=== PATIENT | female | born 1955 | race Caucasian/White ===

== ENCOUNTER 2018-04-03 01:54 | Emergency (ER) | payer BC ==
[2018-04-03 01:57] VITALS: TEMP 36.7; Ht 157.5 cm
[2018-04-03] MEDS ORDERED: ONDANSETRON INJ 2 MG/ML 2 ML VIAL IV STA ×2 (02:09→04:39)
[2018-04-03] MEDS ORDERED: SODIUM CHLORIDE 0.9% 1000ML 1,000 ML IV STA (02:09)
[2018-04-03 02:18] LABS: BASO % 0.1 %; BASO ABS # 0.01 K/uL (0-0.2); EOS ABS # 0.39 K/uL (0-0.5); HEMATOCRIT 43.5 % (37-47); HEMOGLOBIN 14.6 g/dL (12.0-16.0); IG# 0.02 K/uL (0.00-0.02); LYMPH % 3.6 %; LYMPH ABS # 0.28 K/uL (1.2-3.4); MEAN CELL VOLUME 85.3 fL (80-100); MEAN CORPUSCULAR HEMOGLOBIN 28.6 pg (25-34); MEAN CORPUSCULAR HGB CONC 33.6 g/dl (32-36); MEAN PLATELET VOLUME 10.1 fL (7.4-10.4); MONO % 6.6 %; MONO ABS # 0.52 K/uL (0.11-0.59); NEUT % 84.4 %; PLATELET COUNT 246 K/uL (130-400); RED CELL DISTRIBUTION WIDTH CV 13.4 % (11.5-14.5); RED CELL DISTRIBUTION WIDTH SD 41.6 fL (36.4-46.3); WHITE BLOOD COUNT 7.82 K/uL (4.8-10.8)
[2018-04-03] MEDS ORDERED: CHOL1000 PO (02:25)
[2018-04-03] MEDS ORDERED: ASPI81TA28 PO (02:25)
[2018-04-03] MEDS ORDERED: BENA20TA14 PO (02:25)
[2018-04-03] MEDS ORDERED: SERT1TAB71 PO (02:25)
[2018-04-03] MEDS ORDERED: LEVO125T72 PO (02:25)
[2018-04-03 02:47] LABS: ALBUMIN 3.4 gm/dl (3.4-5.0); ALKALINE PHOSPHATASE 175 U/L (45-117); ALT/SGPT 150 U/L (12-78); AST/SGOT 142 U/L (15-37); BLOOD UREA NITROGEN 12 mg/dl (7-18); CALCIUM 8.7 mg/dl (8.5-10.1); CARBON DIOXIDE 22 mmol/L (21-32); CREATININE 0.99 mg/dl (0.60-1.20); GLUCOSE 145 mg/dl (70-99); LIPASE 173 U/L (73-393); POTASSIUM 3.6 mmol/L (3.5-5.1); SODIUM 131 mmol/L (136-145); TOTAL PROTEIN 7.8 gm/dl (6.4-8.2)
[2018-04-03] MEDS ORDERED: ACETAMINOPHEN 500 MG TAB ONE (04:04)
--- NOTE | 2018-04-03 04:14 | EMERGENCY ROOM VISIT NOTE ---
History Report prepared by Fawn: Eva Abbott Under the Supervision of: Dr. Krystyna Rea D.O. First contact with patient: 02:02 Chief Complaint: VOMITING Stated Complaint: NAUSEA VOMITING WEAKNESS History of Present Illness The patient is a 62 year old female who presents to the Emergency Room with complaints of persistent vomiting starting yesterday. The patient states that she started having a cold on the 18 of March. She states that it seemed to get worse after going to [place] for a wedding. She reports that she had a dry cough when she returned that continued to worsen. She states that she would cough so much she would have bladder incontinence. She states that she called her PCP who prescribed her Tessalon Perles. She notes that they did not help with her cough. The patient states that she called her PCP again and they asked that she make an appointment, but she could not get in until Friday. She reports that her nausea and vomiting started 2 days ago with loss of appetite. She states that she started feeling a little better today, but after trying to eat Phillips 's vomited again. The patient notes that she had mild burning with urination and thought maybe she had a UTI. She states that she started taking a Macrolide and has had 4 doses. She states that she thinks that this may be part of the reason she is vomiting because she didn't vomit when she stopped taking it for one day. She notes that she doesn't believe she has a UTI because she has no other symptoms. The patient complains of dry mouth. The patient denies diarrhea. Source of History: patient Onset: yesterday Position: abdomen Quality: other (vomiting) Timing: other (persistent) Modifying Factors (Worsening): eating, other (Macrolide antibiotic) Associated Symptoms: + cough, + nausea, + urinary symptoms, No diarrhea Note: The patient complains of bladder incontinence and dry mouth. Review of Systems See HPI for pertinent positives & negatives. A total of 10 systems reviewed and were otherwise negative. Past Medical & Surgical Medical Problems: (1) HTN (hypertension) (2) Hyperthyroidism Family History FH: CAD (coronary artery disease) FH: CHF (congestive heart failure) FH: myocardial infarction Social History Smoking Status: Never Smoker Marital Status: Housing Status: lives with significant other Occupation Status: retired Current/Historical Medications Scheduled Aspirin (Aspirin Ec), 81 MG PO QAM Benazepril (Lotensin), 20 MG PO QAM Cholecalciferol (Vitamin D3), 1 TAB PO QAM Hydrocodone W/ Homatropine (Hycodan 5/1.5MG 5 Ml), 5 ML PO Q4H Levothyroxine Sodium (Synthroid), 125 MCG PO QAM Sertraline Hcl (Zoloft), 50 MG PO QAM Scheduled PRN Ondansetron Hcl (Zofran), 4 MG PO Q6 PRN for Nausea Allergies Coded Allergies: No Known Allergies (Unverified , 04/03/18) Physical Exam Vital Signs Date Time Temp Pulse Resp B/P (MAP) Pulse Ox O2 Delivery O2 Flow Rate FiO2 04/03/18 06:02 88 18 97/57 97 04/03/18 04:48 85 18 99/47 96 Room Air 04/03/18 04:07 89 25 111/74 94 Room Air 04/03/18 02:54 93 16 91 Room Air 04/03/18 02:35 93 04/03/18 02:31 105/67 04/03/18 02:24 91 21 95 Room Air 04/03/18 02:18 110/74 04/03/18 01:57 36.7 113 18 111/77 96 Room Air Physical Exam General: Appears uncomfortable. Slightly hyperventilating. HEENT: Head - normocephalic and atraumatic Pupils are equal, round, and reactive to light. Extraocular eye muscles are intact, and sclera are anicteric. Nose - moist nasal mucosa without discharge. Mouth - moist buccal mucosa. Oropharynx is nonerythematous and there is no tonsillar exudate or edema noted. Neck: Supple; no JVD, nuchal rigidity, cervical lymphadenopathy. Heart: Regular rate and rhythm. There is a normal S1 and S2 with no murmurs, clicks, or gallops appreciated. Lungs: Clear to auscultation bilaterally with no wheezes, rales, or rhonchi. Abdomen: Soft, completely nontender, nondistended, with good bowel sounds. There are no palpable pulsatile masses or hepatosplenomegaly. There is no guarding, rigidity, or rebound noted. Extremities: No evidence of cyanosis, clubbing, or edema. There are easily palpable peripheral pulses. Skin: warm and pale. Diaphoretic. Medical Decision & Procedures ER Provider Diagnostic Interpretation: CHEST X-RAY: The results were interpreted by me. Narrow mediastinum. No pulmonary infiltrate or consolidation. Laboratory Results 04/03/18 02:08 Red Blood Count 5.10, Mean Corpuscular Volume 85.3, Mean Corpuscular Hemoglobin 28.6, Mean Corpuscular Hemoglobin Concent 33.6, Mean Platelet Volume 10.1, Neutrophils (%) (Auto) 84.4, Lymphocytes (%) (Auto) 3.6, Monocytes (%) (Auto) 6.6, Eosinophils (%) (Auto) 5.0, Basophils (%) (Auto) 0.1, Neutrophils # (Auto) 6.60, Lymphocytes # (Auto) 0.28, Monocytes # (Auto) 0.52, Eosinophils # (Auto) 0.39, Basophils # (Auto) 0.01 04/03/18 02:08 Test 04/03/18 02:08 04/03/18 04:32 White Blood Count 7.82 K/uL (4.8-10.8) Red Blood Count 5.10 M/uL (4.2-5.4) Hemoglobin 14.6 g/dL (12.0-16.0) Hematocrit 43.5 % (37-47) Mean Corpuscular Volume 85.3 fL (80-100) Mean Corpuscular Hemoglobin 28.6 pg (25-34) Mean Corpuscular Hemoglobin Concent 33.6 g/dl (32-36) Platelet Count 246 K/uL (130-400) Mean Platelet Volume 10.1 fL (7.4-10.4) Neutrophils (%) (Auto) 84.4 % Lymphocytes (%) (Auto) 3.6 % Monocytes (%) (Auto) 6.6 % Eosinophils (%) (Auto) 5.0 % Basophils (%) (Auto) 0.1 % Neutrophils # (Auto) 6.60 K/uL (1.4-6.5) Lymphocytes # (Auto) 0.28 K/uL (1.2-3.4) Monocytes # (Auto) 0.52 K/uL (0.11-0.59) Eosinophils # (Auto) 0.39 K/uL (0-0.5) Basophils # (Auto) 0.01 K/uL (0-0.2) RDW Standard Deviation 41.6 fL (36.4-46.3) RDW Coefficient of Variation 13.4 % (11.5-14.5) Immature Granulocyte % (Auto) 0.3 % Immature Granulocyte # (Auto) 0.02 K/uL (0.00-0.02) Anion Gap 11.0 mmol/L (3-11) Estimated GFR () 69.8 Estimated GFR (Non- 60.2 BUN/Creatinine Ratio 11.9 (10-20) Calcium Level 8.7 mg/dl (8.5-10.1) Total Bilirubin 0.5 mg/dl (0.2-1) Direct Bilirubin 0.2 mg/dl (0-0.2) Aspartate Amino Transf (AST/SGOT) 142 U/L (15-37) Alanine Aminotransferase (ALT/SGPT) 150 U/L (12-78) Alkaline Phosphatase 175 U/L (45-117) Troponin I < 0.015 ng/ml (0-0.045) Total Protein 7.8 gm/dl (6.4-8.2) Albumin 3.4 gm/dl (3.4-5.0) Lipase 173 U/L (73-393) Urine Color YELLOW Urine Appearance CLEAR (CLEAR) Urine pH 5.0 (4.5-7.5) Urine Specific [place] 1.010 (1.000-1.030) Urine Protein NEG (NEG) Urine Glucose (UA) NEG (NEG) Urine Ketones NEG (NEG) Urine Occult Blood NEG (NEG) Urine Nitrite NEG (NEG) Urine Bilirubin NEG (NEG) Urine Urobilinogen NEG (NEG) Urine Leukocyte Esterase TRACE (NEG) Urine WBC (Auto) 1-5 /hpf (0-5) Urine RBC (Auto) 0-4 /hpf (0-4) Urine Hyaline Casts (Auto) 0 /lpf (0-5) Urine Epithelial Cells (Auto) 10-20 /lpf (0-5) Urine Bacteria (Auto) NEG (NEG) Laboratory results per my review. Medications Administered Medications (Trade) Dose Ordered Sig/Lyndon Route Start Time Stop Time Status Last Admin Dose Admin Sodium Chloride 1,000 ml @ 999 mls/hr Q1H1M STAT IV 04/03/18 02:09 04/03/18 03:09 DC 04/03/18 02:14 999 MLS/HR Ondansetron HCl (Zofran Inj) 4 mg NOW STAT IV 04/03/18 02:09 04/03/18 02:11 DC 04/03/18 02:13 4 MG Acetaminophen (Tylenol Tab) 1,000 mg STK-MED ONCE .ROUTE 04/03/18 04:04 04/03/18 04:05 DC 04/03/18 04:06 1,000 MG Sodium Chloride 500 ml @ 999 mls/hr Q31M STAT IV 04/03/18 04:39 04/03/18 05:09 DC 04/03/18 04:45 999 MLS/HR Ondansetron HCl (Zofran Inj) 4 mg NOW STAT IV 04/03/18 04:39 04/03/18 04:40 DC 04/03/18 04:44 4 MG Procedure 0209: Ordered Zofran Inj 4 mg IV, NSS 1000 ml @ 999 mls/hr IV. 0404: Ordered Tylenol Tab 1000 mg PO. 0439: Ordered Zofran Inj 4 mg IV, NSS 500 ml @ 999 mls/hr IV. ECG Per My Interpretation Indication: vomiting Rate (beats per minute): 94 Rhythm: normal sinus Findings: no acute ischemic change, no ectopy, other (no ST segement elevations ) ED Course 0204: Past medical records reviewed. The patient was evaluated in room A12B. A complete history and physical exam was performed. An IV lock was initiated and labs were drawn as above. 0209: Ordered Zofran Inj 4 mg IV, NSS 1000 ml @ 999 mls/hr IV. 0236: I reevaluated the patient and her nausea is better, but she is coughing much more. She will have a chest x-ray. 0337: I reevaluated the patient and she is no longer vomiting. She said she has no more nausea, but still feels weak. We are going to have her drink some fluids and eat some crackers. 0404: Ordered Tylenol Tab 1000 mg PO for headache. 0427: I reevaluated the patient and she still feels weak. She is going to try to go to the bathroom. 0439: Ordered Zofran Inj 4 mg IV, NSS 500 ml @ 999 mls/hr IV. 0538: Upon reevaluation, the patient feels much better. I discussed findings and results with her. She verbalized agreement of the treatment plan. She asked for something for her cough. I am going to give her Hycodan cough syrup and an oral dose of Zofran. The patient was discharged home. Medical Decision The patient is a 62 year old female who presents to the Emergency Room with complaints of persistent vomiting starting 3 days ago. Differential diagnoses include dehydration, medication side effect, gastritis, viral illness, UTI. LABS: No leukocytosis Stable H&H Sodium slightly low at 131 Glucose 145 AST 142 ALT 150 Lipase 173 Negative troponin URINALYSIS: Trace leukocyte esterase Some epithelial cells The patient describes increasing weakness and vomiting over the last couple days. Her nausea was controlled here in the emergency department with IV Zofran. Laboratory studies were obtained. The patient was treated with IV normal saline solution and Zofran. She was feeling better until she got up to go to the bathroom and then she felt weak and nauseated again. She received an additional bolus of normal saline solution as she was noted to be hypotensive. She got a second dose of IV Zofran and was feeling much better. The patient was able to drink miladys niki and eat crackers without difficulty. She had no further episodes of vomiting while here in the emergency department. I have asked the patient to have close follow-up with her PCP with regards to the hyponatremia and to have that lab value rechecked. The patient requested a cough suppressant as well as some Zofran for any persistent nausea. I explained her that I felt her chest x-ray was negative with that it would be reviewed and interpreted by the radiologist. [place] Drug Monitoring Program Search Results: no issues identified Medication Reconcilliation Current Medication List: was personally reviewed by me Blood Pressure Screening Patient's blood pressure: Normal blood pressure Blood pressure disposition: Did not require urgent referral Impression Primary Impression: Vomiting Additional Impression: Hyponatremia Scribe Attestation The scribe's documentation has been prepared under my direction and personally reviewed by me in its entirety. I confirm that the note above accurately reflects all work, treatment, procedures, and medical decision making performed by me. Departure Information Dispostion Home / Self-Care Prescriptions Ondansetron Hcl (ZOFRAN) 4 Mg Tab 4 MG PO Q6 Y for Nausea, #20 TAB Prov: Krystyna Rea D.O. 04/03/18 Hydrocodone W/ Homatropine (HYCODAN 5/1.5MG 5 ML) 1 Syp Syp 5 ML PO Q4H, #100 ML Prov: Krystyna Rea D.O. 04/03/18 Referrals Neil Segundo M.D. (PCP) Forms HOME CARE DOCUMENTATION FORM, IMPORTANT VISIT INFORMATION Patient Instructions My [facility] Additional Instructions Rest. Take plenty of clear liquids Return to the ED if nausea or weakness worsens. Follow up later today with your PCP for a recheck. Hycodan - 5ml every 6 hours for coughas needed zofran - 4mg every 6 hours for n[place] as needed Problem Qualifiers Primary Impression: Vomiting Vomiting type: unspecified Vomiting Intractability: non-intractable Nausea presence: with nausea Qualified Codes: R11.2 - Nausea with vomiting, unspecified
[2018-04-03] MEDS ORDERED: SODIUM CHLORIDE 0.9% 500ML 500 ML IV STA (04:39)
[2018-04-03] MEDS ORDERED: ONDA4TAB46 PO (05:50)
[2018-04-03] MEDS ORDERED: HYDR5SYP11 PO (05:50)
[2018-04-03 06:02] VITALS: BP 97/57; PULSE 88; O2SAT 97
--- NOTE | 2018-04-03 06:39 | DIAGNOSTIC IMAGING REPORT ---
CHEST 2 VIEWS ROUTINE HISTORY: 62 years-old Female eval for cough acute cough with nausea COMPARISON: None available TECHNIQUE: PA and lateral views of the chest FINDINGS: Cardiomediastinal and hilar silhouettes are within normal limits. No pneumothorax, pleural effusion, focal airspace consolidation or overt pulmonary edema. Degenerative changes of the shoulders and spine. IMPRESSION: No acute process. The above report was generated using voice recognition software. It may contain grammatical, syntax or spelling errors. Electronically signed by: Ming Glover M.D. 04/03/2018 6:37 AM Dictated Date/Time: 04/03/2018 6:36 AM
== END 2018-04-03 06:03 | disposition home or self-care (01) ==
LOC: C.EDB 01:55 → C.EDA 06:03
DX: R11.2 Nausea with vomiting, unspecified (principal); E87.1 Hypo-osmolality and hyponatremia; R39.9 Unspecified symptoms and signs involving the genitourinary system; I10 Essential (primary) hypertension; E03.9 Hypothyroidism, unspecified; Z79.82 Long term (current) use of aspirin; Z79.899 Other long term (current) drug therapy